=== PATIENT | male | born 1990 | race Caucasian/White ===

== ENCOUNTER 2020-01-21 03:03 | Emergency (ER) | payer OTHER, SELFPAY ==
--- NOTE | ~2020-01-21 | CT_ITS ---
EXAMINATION: CT brain wo con DATE: 01/21/2020 03:40 INDICATION: Head injury. TECHNIQUE: Computed tomography (CT) of the head was performed without intravenous contrast. The mA wa s adjusted according to patient size. Iterative reconstruction technique was employed. The dose-lengt h product was 605.33 mGy-cm. COMPARISON: Head CT 08/25/2017 FINDINGS: There is no intracranial hemorrhage, acute infarction, or abnormal intracranial mass lesion . The ventricles are normal in size. There is fluid in right maxillary sinus. There is mild mucosal t hickening in some of the other paranasal sinuses. There is a trace right mastoid effusion. The orbits are normal. Posterior scalp skin gab are noted. IMPRESSION: 1. Normal brain. Reviewed, dictated and finalized at location A. IMPRESSION: 1. Normal brain.
--- NOTE | ~2020-01-21 | CT_ITS ---
EXAMINATION: CT facial & cervical spine wo DATE: 01/21/2020 03:40 INDICATION: Facial and neck pain TECHNIQUE: Computed tomography (CT) of the maxillofacial region and cervical spine was performed with out intravenous contrast. The dose-length product (DLP) was 188.64 mGy-cm. Automated exposure control and iterative reconstruction technique were employed. COMPARISON: None FINDINGS: MAXILLOFACIAL CT: There is an acute, depressed and comminuted fracture involving the anterior wall of the right maxilla ry sinus. There is gas and swelling in the overlying soft tissues. There is partial opacification of the right maxillary sinus. No additional acute facial fracture is identified. A 12 mm polyp or mucous retention cyst is present in the left maxillary sinus. The globes are intact. CERVICAL SPINE CT: There is no fracture, dislocation, or subluxation. The vertebral body heights, alignment, and interve rtebral disc spaces are normal. The odontoid is intact. The prevertebral soft tissues are normal. IMPRESSION: 1. Acute depressed and comminuted fracture in the anterior wall the right maxillary sinus. 2. Normal cervical spine. Reviewed, dictated and finalized at location A. IMPRESSION: 1. Acute depressed and comminuted fracture in the anterior wall the right maxil debra sinus. 2. Normal cervical spine.
[2020-01-21 03:08] VITALS: BP 120/83; PULSE 112; RESP 20; TEMP 36.4; O2SAT 99
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
[2020-01-21] MEDS: MORPHINE SULFATE 4 MG/ML INJ 2 MG IV PUSH (03:23)
[2020-01-21] MEDS: ONDANSETRON INJ 4 MG/2 ML VIAL IV PUSH (03:23)
[2020-01-21] MEDS: SODIUM CHLORIDE 0.9% IV 1,000 ML 999 ML IV CONT (03:23)
[2020-01-21 03:35] LABS: Basophils Absolute Auto 0.1 K/mm3 (0.0-0.1); Basophils Percent Auto 0.7 % (0.2-1.2); Eosinophils Absolute Auto 0.5 K/mm3 (0-0.3); Eosinophils Percent Auto 4.2 % (0-4.4); Hematocrit 43.4 % (42.0-52.0); Hemoglobin 15.1 g/dL (14.0-18.0); Immature Granulocyte Absolute 0.04 K/mm3 (0.00-0.031); Immature Granulocyte Percent A 0.4 % (0-0.5); Lymphocytes Percent Auto 16.9 % (18.3-44.2); Mean Corpuscular HGB Conc 34.8 g/dl (32-36); Mean Corpuscular Hemoglobin 30.8 pg (26-34); Mean Corpuscular Volume 88.4 fl (80-100); Mean Platelet Volume 9.8 fl (7.4-10.4); Monocytes Absolute Auto 0.8 K/mm3 (0.1-0.6); Monocytes Percent Auto 7.1 % (2.6-8.5); Neutrophils Absolute Auto 7.5 K/mm3 (1.3-6.7); Neutrophils Percent Auto 70.7 % (45.5-73.1); Platelet Count Result 332 k/mm3 (150-375); Red Blood Count 4.91 M/mm3 (4.6-6.20); Red Cell Distribution Width 12.1 % (11.5-14.5); White Blood Count 10.7 K/mm3 (4.5-10.0)
[2020-01-21 03:40] LABS: Blood Urea Nitrogen 15 mg/dL (9-20); Calcium 9.9 mg/dL (8.4-10.2); Carbon Dioxide 19 mmol/L (22-30); Chloride 100 mmol/L (98-107); Estimated CRCL calculation 87 ml/min; Estimated Glomerular Filt Rate > 60; Glucose 195 mg/dL (75-110); Potassium 4.3 mmol/L (3.4-5.0); Sodium 136 mmol/L (137-145)
[2020-01-21 03:46] LABS: Add Urine Microscopic? YES; Appearance Urine Clear (Clear); Bacteria Urine Trace /hpf; Bilirubin Urine Negative (Negative); Blood Urine Negative (Negative); Color Urine Yellow (Yellow); Glucose Urine UA Negative (Negative); Ketones Urine Trace mg/dL (Negative); Leukocyte Esterase Ur Negative LEU/UL (Negative); Mucus Urine Heavy /lpf; Nitrate Urine Negative (Negative); Protein Urine 2+ mg/dL (Negative); RBC Urine 0-2 /hpf (0-2); Specific Grav Ur 1.023 (1.001-1.035); Squamous Epithelial Cell Urine Rare /hpf (Few); Urobilinogen Urine Negative mg/dL (<2.0)
[2020-01-21 03:47] LABS: Ethanol < 10 mg/dL (<10)
[2020-01-21 04:01] LABS: Partial Thromboplastin Time 24.9 SECONDS (22.3-36.8); Prothrombin Time 12.9 Seconds (11.1-14.7)
[2020-01-21] MEDS: TETANUS,DIPHTHERIA,AC PERTUSSIS ADULT (0.5 ML) BOOSTRIX (04:39)
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
[2020-01-21 06:41] VITALS: BP 112/71; PULSE 98; RESP 14; O2SAT 98
== END 2020-01-21 06:43 | disposition home or self-care (01) ==
PROVIDERS: Emergency Provider Emergency Medicine
DX: S02.40CA Maxillary fracture, right side, initial encounter for closed fracture (principal); S01.01XA Laceration without foreign body of scalp, initial encounter; S01.81XA Laceration without foreign body of other part of head, initial encounter; S01.511A Laceration without foreign body of lip, initial encounter; Z23 Encounter for immunization; X99.9XXA Assault by unspecified sharp object, initial encounter
CPT/HCPCS: 12002; 12011; 12013; 36415; 70450; 70486; 72125; 80048; 80307; 81001; 85025; 85610; 85730; 90471; 90715; 96361; 96374; 96375; 99284; A9270; J0131; J2270; J2405; J7030; L0140

== ENCOUNTER 2021-03-03 09:51 | Emergency (ER) | payer OTHER, SELFPAY ==
[2021-03-03 10:05] VITALS: BP 117/72; PULSE 70; RESP 16; TEMP 36.3; O2SAT 100
--- NOTE | 2021-03-03 10:40 | ED.GENADULT ---
HPI - General Adult General Chief complaint: Extremity Injury, Lower Stated complaint: left leg infection Time Seen by Provider: 03/03/21 09:59 Source: patient Mode of arrival: ambulatory Limitations: no limitations History of Present Illness HPI narrative: Patient presents for evaluation of painful swollen lesion to the anterior aspect the left lower leg for last 4 days. He cannot identify any precipitating cause or injury. No fever, chills, nausea, vomiting, drainage from the affected area. He is not diabetic. He does not provide me with a descriptive quality or numerical rating to the pain. He applied some hydrogen peroxide and KEN to affected area without much improvement in his symptoms thereafter. No additional complaints or concerns. He states last tetanus was two years ago. Related Data Allergies Allergy/AdvReac Type Severity Reaction Status Date / Time No Known Allergies Allergy Unknown Verified 03/03/21 10:36 Review of Systems Review of Systems: Narrative: CONSTITUTIONAL: Denies fever, chills, or sweats. EYES: Denies visual changes, redness, or discharge. ENT: Denies rhinorrhea, congestion, sore throat, or otalgia. CARDIOVASCULAR: Denies chest pain, palpitations, or edema. RESPIRATORY: Denies cough or dyspnea. GASTROINTESTINAL: Denies abdominal pain, nausea, vomiting, or diarrhea. GENITOURINARY: Denies dysuria or hematuria. SKIN: Reports painful, swollen, erythematous lesion to the anterior aspect of the left lower extremity MUSCULOSKELETAL: Denies back pain, joint pain, or myalgia. NEUROLOGIC: Denies headache, numbness, dizziness, or weakness. PSYCHIATRIC: Denies anxiety or depression. [facility] Past Medical History Medical History ADD (attention deficit disorder) Medical history unknown Surgical History Surgical History H/O inguinal hernia repair Family History Family History Mother No pertinent past medical history Social History Social History Smoking status: Smoker, status unknown Tobacco type: e-cigarettes/vaping Living arrangements: with family Gender identity (if verbalized by the patient): Male Spiritual care concerns: No Exam Narrative: Exam Narrative: GENERAL: Well-appearing, well-nourished, and in no acute distress. HEAD: Normocephalic, atraumatic. EYES: PERRLA and EOMI. ENT: Nares clear, no rhinorrhea or epistaxis. Mucous membranes moist. Oropharynx without tonsillar hypertrophy exudate or other lesions. Bilateral TMs pearly mendoza nonbulging NECK: Supple. No adenopathy or masses. No carotid bruits or JVD CHEST: Clear to auscultation. No respiratory distress. No wheezes rales or rhonchi HEART: Regular rate and rhythm. No murmur heard. Normal peripheral pulses. ABDOMEN: Soft, nontender, nondistended, normal active bowel sounds. EXTREMITIES: Tenderness to left lower leg lesion. Normal range of motion. SKIN: Approximately 7 x 6 cm area of erythema to the anterior aspect of the left lower leg. There is a 2 cm area of central fluctuance. Skin is otherwise warm, dry, no rash. NEURO: No focal deficits. Alert and oriented x3. PSYCH: Normal mood and affect. Course Course Emergency Course: This is a 30-year-old male that presented for evaluation and treatment of cutaneous abscess. Patient had I&D performed here and he tolerated well. Wound culture obtained. He has an allergy to PCN but can take derivitives such as amoxicillin. Will discharge with Bactrim and Keflex. Advise close follow-up and return for any worsening symptoms. Patient agreed with plan of care. Vital Signs Vital signs: Vital Signs Temperature 36.3 C L 03/03/21 10:05 Pulse Rate 70 03/03/21 10:05 Respiratory Rate 16 03/03/21 10:05 Blood Pressure 117/72 03/03/21 10:05
--- NOTE | 2021-03-03 11:14 | ED.GENADULT ---
HPI - General Adult General Chief complaint: Extremity Injury, Lower Stated complaint: left leg infection Time Seen by Provider: 03/03/21 09:59 Source: patient Mode of arrival: ambulatory Limitations: no limitations Related Data Allergies Allergy/AdvReac Type Severity Reaction Status Date / Time No Known Allergies Allergy Unknown Verified 03/03/21 10:36 Review of Systems Review of Systems: Narrative: CONSTITUTIONAL: Denies fever, chills, or sweats. EYES: Denies visual changes, redness, or discharge. ENT: Denies rhinorrhea, congestion, sore throat, or otalgia. CARDIOVASCULAR: Denies chest pain, palpitations, or edema. RESPIRATORY: Denies cough or dyspnea. GASTROINTESTINAL: Denies abdominal pain, nausea, vomiting, or diarrhea. GENITOURINARY: Denies dysuria or hematuria. SKIN: Reports redness to 3rd digit of right foot. Denies rash or itching. MUSCULOSKELETAL: Denies back pain, joint pain, or myalgia. NEUROLOGIC: Denies headache, numbness, dizziness, or weakness. PSYCHIATRIC: Denies anxiety or depression. [facility] Past Medical History Medical History ADD (attention deficit disorder) Medical history unknown Surgical History Surgical History H/O inguinal hernia repair Family History Family History Mother No pertinent past medical history Social History Social History Smoking status: Smoker, status unknown Tobacco type: e-cigarettes/vaping Living arrangements: with family Gender identity (if verbalized by the patient): Male Spiritual care concerns: No Course Vital Signs Vital signs: Vital Signs Temperature 36.3 C L 03/03/21 10:05 Pulse Rate 70 03/03/21 10:05 Respiratory Rate 16 03/03/21 10:05 Blood Pressure 117/72 03/03/21 10:05 Pulse Oximetry 100 03/03/21 10:05 Temperature 36.3 C L 03/03/21 10:05 Pulse Rate 70 03/03/21 10:05 Respiratory Rate 16 03/03/21 10:05 Blood Pressure 117/72 03/03/21 10:05 Pulse Oximetry 100 03/03/21 10:05 Medical Decision Making Vital Signs Vital Signs: Vital Signs Temperature 36.3 C L 03/03/21 10:05 Pulse Rate 70 03/03/21 10:05 Respiratory Rate 16 03/03/21 10:05 Blood Pressure 117/72 03/03/21 10:05 Pulse Oximetry 100 03/03/21 10:05 Temperature 36.3 C L 03/03/21 10:05 Pulse Rate 70 03/03/21 10:05 Respiratory Rate 16 03/03/21 10:05 Blood Pressure 117/72 03/03/21 10:05 Pulse Oximetry 100 03/03/21 10:05 Discharge Plan Discharge Clinical Impression: Cutaneous abscess of left lower limb Patient Disposition: Home, Self-Care Condition: Stable Instructions: Antibiotic Form, Abscess (ED), Incision and Drainage (ED) Patient Language: Polish Prescriptions: New cephalexin 500 mg capsule 500 mg PO Q6H Qty: 40 RF: 0 sulfamethoxazole-trimethoprim [Bactrim DS] 800-160 mg tablet 1 tablet PO Q12H Qty: 20 RF: 0 Follow-up/Referrals: Luis Tejeda MD [Physician] - UNKNOWN,DOCTOR [Primary Care Provider] - Time of Disposition: 11:04
== END 2021-03-03 11:09 | disposition home or self-care (01) ==
PROVIDERS: Emergency Provider Nurse Practitioner
DX: L02.416 Cutaneous abscess of left lower limb (principal); F17.200 Nicotine dependence, unspecified, uncomplicated
CPT/HCPCS: 10061; 87070; 87147; 87186; 87205; 99213; G0463

== ENCOUNTER 2021-11-20 15:36 | Emergency (ER) | payer OTHER, SELFPAY ==
--- NOTE | ~2021-11-20 | XR_ITS ---
XR femur LT min 2V DATE: 11/20/2021 16:15 INDICATION: Injury. Left groin pain radiating down left femur TECHNIQUE: AP and lateral views COMPARISON: November 20, 2021 left hip FINDINGS: 4 mm lucency subjacent to the cortex of the lateral aspect of the left femoral head; the ve rtebral diagnosis includes variation of trabecular pattern versus subtle nondisplaced cortical fractu re. Clinical correlation is advised. If further evaluation is appropriate, consider CT or MR hip exam ination. No other fracture or dislocation or any periosteal reaction or bone destruction of the left femur. No rmal alignment left hip and knee joint with relative preservation of joint spaces. IMPRESSION: Lucencies subjacent to the very lateral cortex of the left femoral head, which may be nor mal variation of trabecular pattern versus very subtle nondisplaced cortical fracture. Recommend clin ical correlation. If further imaging is desired, consider CT or MR left hip examination Reviewed, dictated and finalized at location B. ER INFLATED BALL IMPRESSION: Lucencies subjacent to the very lateral cortex of the left femoral head, which may be normal variation of trabecular pattern versus very subtle no ndisplaced cortical fracture. Recommend clinical correlation. If further imagin g is desired, consider CT or MR left hip examination
--- NOTE | ~2021-11-20 | XR_ITS ---
XR hip LT min 2V DATE: 11/20/2021 16:16 INDICATION: Injury. Left groin pain radiating down left leg TECHNIQUE: AP and lateral views COMPARISON: None FINDINGS: The pubic symphysis and sacroiliac joints are intact. There is an approximately 4 mm subcortical lucency at the lateral aspect of the femoral head on the A P projection, of uncertain significance. This might be anatomic variation of trabecular pattern, alth ough a subtle nondisplaced cortical fracture is not definitively excluded given the history of recent injury. Consider CT left hip or MR left hip for further evaluation as clinically appropriate. Otherwise no fracture or dislocation, avascular necrosis or bone destruction of the left hip is detec zuhair. Left hip joint space appears relatively well preserved. IMPRESSION: 4 mm lucency subjacent to the cortex at the very lateral aspect of the left femoral head; differential diagnosis includes anatomic variant of trabecular pattern versus small nondisplaced cor tical fracture. Clinical correlation is advised. Consider CT or MR hip evaluation as clinically appro priate Reviewed, dictated and finalized at location B. [employer] DIRECT[employer] IMPRESSION: 4 mm lucency subjacent to the cortex at the very lateral aspect of the left femoral head; differential diagnosis includes anatomic variant of trab ecular pattern versus small nondisplaced cortical fracture. Clinical correlatio n is advised. Consider CT or MR hip evaluation as clinically appropriate
--- NOTE | 2021-11-20 15:37 | ED.LOWEXIN ---
HPI - Extremity Injury (Lower) General Chief Complaint: Extremity Injury, Lower Stated Complaint: righy leg Time Seen by Provider: 11/20/21 16:05 Source: patient and RN notes reviewed Mode of arrival: ambulatory Limitations: no limitations History of Present Illness HPI Narrative: 31-year-old male presents with concern for hip pain. He reports several days ago he was playing around with some friends and jumped over a hand rail. Reports he fell injuring his left hip and his right thigh. He reports since then he has had bruising, pain with walking, pain with position changes. He reports pain with ambulation. He denies [id number] intervention. He reports history of hernia surgery with mesh bilaterally. Reports the right thigh pain radiates to the right groin MD complaint: hip injury Related Data Home Medications Medication Instructions Recorded Confirmed dextroamphetamine-amphetamine 30 mg PO DAILY 11/20/21 11/20/21 Allergies Allergy/AdvReac Type Severity Reaction Status Date / Time No Known Allergies Allergy Unknown Verified 11/20/21 15:48 Review of Systems Review of Systems: CONSTITUTIONAL: Denies malaise, chills, sweats, or fever. SKIN: Denies rash or itching, open skin, laceration, abrasion, redness, warmth, swelling. MUSCULOSKELETAL: Reports left hip pain and bruising, right thigh bruising NEUROLOGIC: Denies numbness, weakness All systems reviewed & are unremarkable except as noted in HPI and below PMFSH Past Medical History Medical History ADD (attention deficit disorder) Medical history unknown Surgical History Surgical History H/O inguinal hernia repair Family History Family History Mother No pertinent past medical history Social History Social History Smoking status: Smoker, status unknown Tobacco type: e-cigarettes/vaping Gender identity (if verbalized by the patient): Male Spiritual care concerns: No Comments At time of signature, agree with nursing past medical, surgical, social and family history. There is no relevant family history pertinent to the presenting complaint Exam Narrative: GENERAL: Well-appearing, well-nourished, and in no acute distress. HEAD: Normocephalic, atraumatic. EYES: PERRLA, conjunctivae clear NECK: Supple. CHEST: Speaks in full sentences. No respiratory distress. HEART: Regular rate and rhythm. Normal and equal peripheral pulses. EXTREMITIES: Bilateral hips have normal strength and sensation, normal range of motion. No edema. Left hip has large area of lateral ecchymosis, medial mid thigh right. Ecchymosis 5/5 strength with hip flexion and extension. Normal sensation with sensitivity to light touch and pain. Lateral left hip femoral head tenderness. No open wounds, no skin tenting, no devitalized tissue or atrophy, no trophic changes, no obvious deformity, alignment normal, nearby joints and structures intact. Distal pulses palpable and equal bilaterally, skin warm, dry, pink. Capillary refill less than 3 seconds. ABDOMEN: No abdominal tenderness, bilateral groins without palpable masses, hernias, no tenderness. No groin tenderness SKIN: Warm, dry, no rash. NEURO: Alert and oriented x3. PSYCH: Normal mood and affect Course Course Emergency Course: Discussed x-ray findings with patient. Discussed need for crutches until he can follow-up with orthopedics. Patient's exam correlates with x-ray. Patient is aware of diagnosis, understands and agrees to treatment plan. Anticipatory guidance given. Patient agrees to follow-up as directed and is aware of reasons to seek care at the emergency department. Portions of this record may have been created with voice recognition software Level of Care: [facility] Visit Vital
[2021-11-20 15:46] VITALS: BP 119/86; PULSE 96; RESP 16; TEMP 36.7; O2SAT 100
== END 2021-11-20 16:45 | disposition home or self-care (01) ==
PROVIDERS: Emergency Provider Nurse Practitioner
DX: S79.912A Unspecified injury of left hip, initial encounter (principal); W19.XXXA Unspecified fall, initial encounter; F98.8 Other specified behavioral and emotional disorders with onset usually occurring in childhood and adolescence
CPT/HCPCS: 73502; 73552; 99214; G0463

== ENCOUNTER 2021-12-25 10:05 | Emergency (ER) | payer OTHER, SELFPAY ==
[2021-12-25 10:15] VITALS: BP 122/64; PULSE 66; RESP 18; TEMP 36.9; O2SAT 100
--- NOTE | 2021-12-25 10:20 | ED.DENTAL ---
HPI - Dental/Oral General Chief complaint: Dental/Oral Stated complaint: Tooth Pain Time Seen by Provider: 12/25/21 10:20 Source: patient Mode of arrival: ambulatory Limitations: no limitations History of Present Illness HPI Narrative: Bony Tsai is a 31 yo male with no PMH who [facility] molar pain with that started 4 days ago-patient requested Vicodin for pain Related Data Home Medications Medication Instructions Recorded Confirmed dextroamphetamine-amphetamine 30 mg PO DAILY 11/20/21 11/20/21 Allergies Allergy/AdvReac Type Severity Reaction Status Date / Time Penicillins Allergy Swelling Verified 12/25/21 10:39 Review of Systems Review of Systems: CONSTITUTIONAL: Denies fever, chills, sweats. EYES: Denies visual changes, redness, discharge. ENT: Denies rhinorrhea, congestion, sore throat, otalgia. CARDIOVASCULAR: Denies chest pain, palpitations, edema. RESPIRATORY: Denies dyspnea, wheezing, cough GASTROINTESTINAL: Denies abdominal pain, nausea, vomiting, diarrhea. GENITOURINARY: Denies dysuria, hematuria, abnormal discharge SKIN: Denies rash or itching. NEUROLOGIC: Denies numbness, or focal weakness. PSYCHIATRIC: Denies anxiety or depression. Right lower molar dental pain PMFSH Past Medical History Medical History (Updated 12/25/21 @ 11:36 by Gogo Miranda CNP) ADD (attention deficit disorder) Surgical History Surgical History H/O inguinal hernia repair Family History Family History Mother No pertinent past medical history Social History Social History (Updated 12/25/21 @ 10:40 by Gogo Miranda CNP) Smoking status: Smoker, status unknown Tobacco type: e-cigarettes/vaping Alcohol intake: current Alcohol use details: Drinks more than socially Gender identity (if verbalized by the patient): Male Spiritual care concerns: No Comments At time of signature, I agree with nursing past medical, surgical, social and family history. There is no relevant family history pertinent to the presenting complaint. Exam Narrative: GENERAL: This is a well-nourished, well-developed patient, in moderate distress. HEAD: normocephalic, atraumatic. EYES: Sclera clear/white. Vision is grossly intact. EARS: External ears normal. Hearing grossly intact. NOSE: External nose normal without nasal discharge, nares without redness, no rhinorrhea. Mouth-poor dentition he has a partial dental patch on the right second molar, tooth #18; states he can feel his pulse in his tooth THROAT: Mucous membranes moist, NECK: Neck supple, non-tender CARDIOVASCULAR: Regular rate and rhythm without murmurs, gallops, or rubs. RESPIRATORY: Clear to auscultation. Breath sounds equal bilaterally. No wheezes, rales, or rhonchi. GASTROINTESTINAL: Abdomen soft, SKIN: warm, intact with no suspicious lesions or rash, good texture and turgor. NEURO: awake, alert, and oriented to person, place and time. There were no obvious focal neurologic abnormalities. Steady gait EXTREMITIES: Normal range of motion. BACK: Nontender without deformity Course Course Emergency Course: Patient comes with dental pain x4 days lower right molar with a dental patch in place Started on amoxicillin 500 mg 1 3 times daily x10 days and Tylenol 3, ibuprofen 800 mg 3 times daily as needed patient given dental list; patient confirmed that he can take amoxicillin even though he states he is allergic to penicillin- states only swelling of jaw not airway, Level of Care: Express Care Visit Vital Signs Vital signs: Vital Signs Temperature 98.4 F 12/25/21 10:15 Pulse Rate 66 12/25/21 10:15 Respiratory Rate 18 12/25/21 10:15 Blood Pressure 122/64 12/25/21 10:15 Pulse Oximetry 100 12/25/21 10:15 Temperature 98.4 F 12/25/21 10:15 Pulse Rate 66 12/25/21 10:15 Respiratory Rate 18
== END 2021-12-25 10:41 | disposition home or self-care (01) ==
PROVIDERS: Emergency Provider Nurse Practitioner
DX: S02.5XXA Fracture of tooth (traumatic), initial encounter for closed fracture (principal); F98.8 Other specified behavioral and emotional disorders with onset usually occurring in childhood and adolescence; X58.XXXA Exposure to other specified factors, initial encounter
CPT/HCPCS: 99213; G0463

== ENCOUNTER 2022-06-08 19:09 | Emergency (ER) | payer OTHER, SELFPAY ==
--- NOTE | 2022-06-08 19:11 | ED.SKABFB ---
HPI - Skin/Abscess/Foreign Bdy General Chief complaint: Skin/Abscess/Foreign Body Stated complaint: boil under armpit Time Seen by Provider: 06/08/22 19:19 Source: patient and RN notes reviewed Mode of arrival: ambulatory Limitations: dementia History of Present Illness HPI narrative: 32-year-old male presents with concern for a boil in his right axillary area. He reports the area has been there for about 3 days and is tender. He denies drainage. Reports he was rolling up his sleeves at work and feels that the shirt rubbed on his skin causing the boil. He denies fever, bodies, chills, sweats. Reports history of having to have a boil lanced another area of his body. MD complaint: other (Redness) Related Data Allergies Allergy/AdvReac Type Severity Reaction Status Date / Time Penicillins Allergy Swelling Verified 06/08/22 19:11 Review of Systems Review of Systems: CONSTITUTIONAL: Denies malaise, chills, sweats, or fever. EYES: Denies redness, or discharge. ENT: Denies rhinorrhea, congestion, swollen lips, swollen tongue CARDIOVASCULAR: Denies chest pain, palpitations, or edema. RESPIRATORY: Denies cough or dyspnea. GASTROINTESTINAL: Denies abdominal pain, nausea, vomiting SKIN: Reports red boil on his right axillary area. Denies purulent drainage, numbness, pain beyond proportion MUSCULOSKELETAL: Denies joint pain or myalgia. NEUROLOGIC: Denies headache. All systems reviewed & are unremarkable except as noted in HPI and below PMFSH Past Medical History Medical History (Updated 06/08/22 @ 19:24 by Afsaneh Cid NP) ADD (attention deficit disorder) Surgical History Surgical History H/O inguinal hernia repair Family History Family History Mother No pertinent past medical history Social History Social History (Updated 12/25/21 @ 10:40 by Gogo Miranda CNP) Smoking status: Smoker, status unknown Tobacco type: e-cigarettes/vaping Alcohol intake: current Alcohol use details: Drinks more than socially Gender identity (if verbalized by the patient): Male Spiritual care concerns: No Comments At time of signature, agree with nursing past medical, surgical, social and family history. There is no relevant family history pertinent to the presenting complaint Exam Narrative: GENERAL: Well-appearing, well-nourished, and in no acute distress. HEAD: Normocephalic, atraumatic. EYES: PERRLA, conjunctivae clear ENT: Mucous membranes moist. NECK: Supple. No lymphadenopathy CHEST: Clear to auscultation. No respiratory distress. HEART: Regular rate and rhythm. SKIN: Warm, dry. Approximate 3 cm raised fluctuant erythematous, tender, warm nodule with sharp margins noted in the right axilla without surrounding erythema, tenderness does not extend beyond margins of the boil. No vesicles, bullae, necrosis, ecchymosis, crepitus noted. NEURO: Alert and oriented x3. PSYCH: Normal mood and affect Course Course Emergency Course: Patient is aware of diagnosis, understands and agrees to treatment plan. Anticipatory guidance given. Patient agrees to follow-up as directed and is aware of reasons to seek care at the emergency department. Portions of this record may have been created with voice recognition software Level of Care: Express Care Visit Vital Signs Vital signs: Reviewed. Procedures Abscess I/D upper extremity: Date of Incision: 06/08/22 Time of Incision: 19:23 Side (if applicable): right Local Anesthetic: lidocaine 1% Amount of anesthesia used (mL): 3 Technique: incised with #11 blade Amount of fluid expressed (mL): 5 Irrigation: Yes Packing used?: none I&D Results: Pus MDM - Skin/Abscess/Foreign Bdy MDM Narrative Medical decision making narrative: Verbal consent was obtained. The indication for the procedure was clinical
[2022-06-08 19:16] VITALS: BP 138/73; PULSE 86; RESP 16; TEMP 37; O2SAT 99
== END 2022-06-08 19:50 | disposition home or self-care (01) ==
PROVIDERS: Emergency Provider Nurse Practitioner
DX: L02.411 Cutaneous abscess of right axilla (principal); F17.290 Nicotine dependence, other tobacco product, uncomplicated
CPT/HCPCS: 10060; 87070; 87147; 87181; 87186; 87205; 99213; G0463

== ENCOUNTER 2022-08-18 19:06 | Emergency (ER) | payer OTHER, SELFPAY ==
[2022-08-18 19:21] VITALS: BP 139/92; PULSE 114; RESP 18; TEMP 36.6; O2SAT 100
--- NOTE | 2022-08-18 19:54 | ED.URI ---
HPI - URI/Sore Throat General Chief Complaint: Upper Respiratory Infection Stated Complaint: SORE THROAT Time Seen by Provider: 08/18/22 19:31 Source: patient Mode of arrival: ambulatory Limitations: no limitations History of Present Illness HPI Narrative: The patient presents today complaining of a 2 day history of throat irritation. Denies fever, congestion, cough, rhinorrhea. He has tried no medication for symptoms prior to arrival. Currently rates his pain 5/10. Patient is also concerned that he has had intermittent bloody stool x months . he has had this evaluated by his previous PCP several months ago who recommended that he get a colonoscopy. He has not had this set up and now his PCP is no longer in the area and he does not want to go to the doctor that replaced her. He does not have pain when he has a bowel movement. States the blood occurs typically once weekly. He has no abdominal pain, nausea or vomiting to go along with this. Related Data Home Medications Medication Instructions Recorded Confirmed No Home Medications 08/18/22 08/18/22 Allergies Allergy/AdvReac Type Severity Reaction Status Date / Time Penicillins Allergy Swelling Verified 08/18/22 19:14 Review of Systems Review of Systems: CONSTITUTIONAL: Denies body aches, fever, chills, or sweats. EYES: Denies visual changes, redness, or discharge. ENT: Denies rhinorrhea, congestion, sore throat, or otalgia.+ Throat irritation CARDIOVASCULAR: Denies chest pain, palpitations, or edema. RESPIRATORY: Denies cough or dyspnea. GASTROINTESTINAL: Denies abdominal pain, nausea, vomiting, or diarrhea.+ bloody stool GENITOURINARY: Denies dysuria or hematuria. SKIN: Denies rash, itching, or wounds. MUSCULOSKELETAL: Denies back pain, joint pain, or myalgia. NEUROLOGIC: Denies headache, numbness, tingling, or weakness. PSYCH: Denies depression or anxiety. [facility] Past Medical History Medical History ADD (attention deficit disorder) Surgical History Surgical History H/O inguinal hernia repair Family History Family History Mother No pertinent past medical history Social History Social History Smoking status: Smoker, status unknown Tobacco type: e-cigarettes/vaping Alcohol intake: current Alcohol use details: Drinks more than socially Gender identity (if verbalized by the patient): Male Spiritual care concerns: No Comments At time of signature, I have reviewed and agree with nursing past medical, surgical, social and family history unless otherwise noted. Please see nursing chart for further information. There is no relevant family history pertinent to the presenting complaint Exam Narrative: GENERAL: Well-appearing, well-nourished, and in no acute distress. HEAD: Normocephalic, atraumatic. EYES: EOMI. No redness or drainage. Conjunctivae normal. ENT: Mucous membranes pink and moist. Nares clear. No rhinorrhea. TMs normal bilaterally. Throat normal with right-sided tonsil stone. Uvula midline. NECK: Normal AROM. Supple. No lymphadenopathy. CHEST: No respiratory distress. Clear to auscultation. HEART: Regular rate and rhythm. No murmur appreciated. Normal peripheral pulses. ABDOMEN: Soft, nontender, nondistended, normal active bowel sounds. patient has declined rectal exam. MUSCULOSKELETAL: No bony tenderness. EXTREMITIES: Normal range of motion. No edema. SKIN: Warm, dry, no rash. Capillary refill normal. Normal skin turgor. NEURO: No focal deficits. Alert and oriented x3. Gait steady. PSYCH: Normal affect. No signs of depression or anxiety. Course Course Level of Care: Express Care Visit Vital Signs Vital signs: Vital Signs Temperature 97.9 F 08/18/22 19:21 Puls
== END 2022-08-18 20:05 | disposition home or self-care (01) ==
PROVIDERS: Emergency Provider Nurse Practitioner
DX: J35.8 Other chronic diseases of tonsils and adenoids (principal); F17.290 Nicotine dependence, other tobacco product, uncomplicated
CPT/HCPCS: 87081; 87880; 99213; G0463

== ENCOUNTER 2023-02-27 14:09 | Emergency (ER) | payer OTHER, SELFPAY ==
[2023-02-27 14:30] VITALS: BP 123/78; PULSE 60; RESP 14; TEMP 36.3; O2SAT 100
--- NOTE | 2023-02-27 14:52 | ED.DENTAL ---
HPI - Dental/Oral General Chief complaint: Dental/Oral Stated complaint: Dental Pain Time Seen by Provider: 02/27/23 14:54 Source: patient Mode of arrival: ambulatory History of Present Illness HPI Narrative: 32-year-old male presented for complaint of right sided dental pain, he is unsure if the pain is to the top with the bottom. States started yesterday. He took leftover pain medicine with codeine without relief. He denies associated difficulty swallowing, neck pain, nausea, vomiting, fevers or chills. Endorses history of broken teeth and caries. Unsure if he has a dentist MD Complaint: tooth pain Related Data Allergies Allergy/AdvReac Type Severity Reaction Status Date / Time Penicillins Allergy Swelling Verified 02/27/23 14:16 Review of Systems Review of Systems: CONSTITUTIONAL: Denies body aches, fever, chills ENT: Denies rhinorrhea, congestion, sore throat, or otalgia. Reports dental pain CARDIOVASCULAR: Denies chest pain, palpitations RESPIRATORY: Denies cough or dyspnea. SKIN: Denies rash, itching, or wounds. MUSCULOSKELETAL: Denies myalgia. NEUROLOGIC: Denies headache, numbness, tingling, or weakness. [facility] Past Medical History Medical History ADD (attention deficit disorder) Surgical History Surgical History H/O inguinal hernia repair Family History Family History Mother No pertinent past medical history Social History Social History Smoking status: Smoker, status unknown Tobacco type: e-cigarettes/vaping Alcohol intake: current Alcohol use details: Drinks more than socially Living arrangements: with family Gender identity (if verbalized by the patient): Male Spiritual care concerns: No Comments At time of signature, I have reviewed and agree with nursing past medical, surgical, social and family history unless otherwise noted. Please see nursing chart for further information. There is no relevant family history pertinent to the presenting complaint Exam Narrative: GENERAL: Appears in pain; no acute distress. HEAD: Normocephalic, atraumatic. EYES: EOMI. No redness or drainage. Conjunctivae normal. ENT: Dental pain location of #1-4 and #28-32, no apparent gum swelling or redness, filling noted to #30. Mucous membranes pink and moist. TMs normal bilaterally. Throat normal. Uvula midline. NECK: Normal AROM. No lymphadenopathy or induration CHEST: No respiratory distress. Clear to auscultation. HEART: Regular rate and rhythm. No murmur appreciated. SKIN: Warm, dry, no rash. Normal skin turgor. PSYCH: flat, agitated Course Course Emergency Course: Patient is aware of diagnosis, understands and agrees to treatment plan. Anticipatory guidance given. Patient agrees to follow-up as directed and is aware of reasons to seek care at the emergency department. Portions of this record may have been created with voice recognition software Level of Care: Express Care Visit Vital Signs Vital signs: Vital Signs Temperature 97.3 F L 02/27/23 14:30 Pulse Rate 60 02/27/23 14:30 Respiratory Rate 14 02/27/23 14:30 Blood Pressure 123/78 02/27/23 14:30 Pulse Oximetry 100 02/27/23 14:30 Oxygen Delivery Room Air 02/27/23 14:30 Temperature 97.3 F L 02/27/23 14:30 Pulse Rate 60 02/27/23 14:30 Respiratory Rate 14 02/27/23 14:30 Blood Pressure 123/78 02/27/23 14:30 Pulse Oximetry 100 02/27/23 14:30 Oxygen Delivery Room Air 02/27/23 14:30 MDM - Dental/Oral MDM Narrative Medical decision making narrative: Patients pain and complaint coupled with physical findings are consistent with dentalgia, since patient is unable to verbalize if the pain is upper or lower, suspect toothache over abscess. Will send abx d
== END 2023-02-27 15:08 | disposition home or self-care (01) ==
PROVIDERS: Emergency Provider Nurse Practitioner Family
DX: K08.89 Other specified disorders of teeth and supporting structures (principal); F17.290 Nicotine dependence, other tobacco product, uncomplicated
CPT/HCPCS: 99213; G0463

== ENCOUNTER 2023-07-19 13:06 | Emergency (ER) | payer OTHER, SELFPAY ==
--- NOTE | 2023-07-19 13:10 | ED.NAVMDI ---
HPI - Nausea/Vomiting/Diarrhea General Chief complaint: Nausea/Vomiting/Diarrhea Stated complaint: throwing up,headache work note Time Seen by Provider: 07/19/23 13:18 Source: patient and RN notes reviewed Mode of arrival: ambulatory Limitations: no limitations History of Present Illness HPI Narrative: 33-year-old male presents with concern for an episode of vomiting today and 1 episode of headache. He denies current symptoms. He denies rhinorrhea, nasal congestion, sore throat. He denies abdominal pain, fever, aches, chills, sweats. He denies known sick contacts. Reports his symptoms have resolved and he needs a note for leaving work. MD elicited complaint: nausea and vomiting Related Data Home Medications Medication Instructions Recorded Confirmed No Home Medications 07/19/23 07/19/23 Allergies Allergy/AdvReac Type Severity Reaction Status Date / Time Penicillins Allergy Swelling Verified 07/19/23 13:16 Review of Systems Review of Systems: CONSTITUTIONAL: Denies malaise, chills, sweats, or fever. ENT: Denies rhinorrhea, congestion, sinus pain, otalgia or sore throat. CARDIOVASCULAR: Denies chest pain, palpitations, or edema. RESPIRATORY: Denies cough or dyspnea. GASTROINTESTINAL: Denies abdominal pain, nausea, vomiting, diarrhea, bloody, or mucous stools. GENITOURINARY: Denies dysuria or hematuria. MUSCULOSKELETAL: Denies myalgia. NEUROLOGIC: Denies headache. All systems reviewed & are unremarkable except as noted in HPI and below PMFSH Past Medical History Medical History ADD (attention deficit disorder) Surgical History Surgical History H/O inguinal hernia repair Family History Family History Mother No pertinent past medical history Social History Social History Smoking status: Smoker, status unknown Tobacco type: e-cigarettes/vaping Alcohol intake: current Alcohol use details: Drinks more than socially Living arrangements: with family Gender identity (if verbalized by the patient): Male Spiritual care concerns: No Comments At time of signature, agree with nursing past medical, surgical, social and family history. There is no relevant family history pertinent to the presenting complaint Exam Narrative: GENERAL: Well-appearing, well-nourished, and in no acute distress. HEAD: Normocephalic, atraumatic. EYES: PERRLA, conjunctivae clear, and EOMI. ENT: Nares clear, turbinates pink, no rhinorrhea or epistaxis. Mucous membranes moist. Oropharynx without edema, erythema, or lesions. Tonsils not enlarged and without exudate. NECK: Supple. No lymphadenopathy CHEST: Speaks in full sentences. No respiratory distress. HEART: Regular rate and rhythm. ABDOMEN: Soft, flat, nondistended, nontender. No guarding, rebound tenderness, or rigidity. No pulsatile masses. Bowel sounds present in all four quadrants. SKIN: Warm, dry, no rash. NEURO: Alert and oriented x3. PSYCH: Normal mood and affect Course Course Emergency Course: Patient is aware of diagnosis, understands and agrees to treatment plan. Anticipatory guidance given. Patient agrees to follow-up as directed and is aware of reasons to seek care at the emergency department. Portions of this record may have been created with voice recognition software Level of Care: Express Care Visit Vital Signs Vital signs: Reviewed. MDM - Nausea/Vomiting/Diarrhea MDM Narrative Medical decision making narrative: No evidence of pancreatitis, AAA, cholecystitis, choledocholithiasis, cholangitis, mesenteric ischemia, small bowel obstruction, diverticulitis, colitis, appendicitis, or pelvic etiology such as. Patient has no history of peptic ulcer, H. pylori, chronic aspirin NSAID or corticosteroid use, chronic alc
[2023-07-19 13:15] VITALS: BP 128/72; PULSE 71; RESP 16; TEMP 36.9; O2SAT 99
[2023-07-19 13:17] VITALS: BP 128/72; PULSE 71; RESP 16; TEMP 36.9; O2SAT 99
== END 2023-07-19 13:28 | disposition home or self-care (01) ==
PROVIDERS: Emergency Provider Nurse Practitioner
DX: R11.10 Vomiting, unspecified (principal); F17.290 Nicotine dependence, other tobacco product, uncomplicated
CPT/HCPCS: 99211; G0463

== ENCOUNTER 2023-10-05 18:32 | Emergency (ER) | payer OTHER, SELFPAY ==
--- NOTE | 2023-10-05 18:36 | ED.DENTAL ---
HPI - Dental/Oral General Chief complaint: Dental/Oral Stated complaint: right side tooth pain Time Seen by Provider: 10/05/23 18:35 Source: patient Mode of arrival: ambulatory Limitations: no limitations History of Present Illness HPI Narrative: Bony is a 33-year-old male patient presenting to clinic today with complaints of pain and swelling in the right lower jaw. He reports he has had dental pain for the past few days. Has had infections with this tooth before. Related Data Allergies Allergy/AdvReac Type Severity Reaction Status Date / Time Penicillins Allergy Swelling Verified 10/05/23 18:39 Review of Systems Review of Systems: Pertinent positives per HPI. Patient denies any fever, chills, rash, headache, visual changes, dizziness, cough, shortness of breath, chest pain, palpitations, nausea, vomiting, diarrhea, constipation, abdominal pain, or any urinary issues. PMFSH Past Medical History Medical History ADD (attention deficit disorder) Surgical History Surgical History H/O inguinal hernia repair Family History Family History Mother No pertinent past medical history Social History Social History Smoking status: Smoker, status unknown Tobacco type: e-cigarettes/vaping Alcohol intake: current Alcohol use details: Drinks more than socially Living arrangements: with family Gender identity (if verbalized by the patient): Male Spiritual care concerns: No Comments At the time of my signature, I reviewed and agree with the nursing past medical, surgical, social, and family history. There is no relevant family history pertinent to the patient complaint. Exam Narrative: General: Well-developed, well nourished, in no apparent distress Head: Normocephalic, atraumatic Eyes: Pupils equally round and reactive to light bilaterally, EOM intact, sclera and conjunctive clear, no discharge, lids normal Ears: TMs intact and clear, ear canals clear, no drainage, grossly hearing normal. Nose: Nares patent, no discharge, no inflammation, no sinus tenderness. Mouth: Oral pharynx without lesions or masses, poor dentition, MMM. Dental pain to the number 30 with swelling and redness Neck: Supple, trachea midline, no enlargement of anterior or posterior cervical nodes, no thyroid masses or goiter palpable. Cardio: Regular rate and rhythm, s1 and s2 normal, no murmur appreciated. Resp: Clear to auscultation bilaterally, no rhonchi, rales, wheezing or rubs Course Course Emergency Course: Portions of this record may have been created with voice recognition software. Level of Care: Express Care Visit Vital Signs Vital signs: Vital Signs Temperature 37.2 C 10/05/23 18:41 Pulse Rate 69 10/05/23 18:41 Respiratory Rate 16 10/05/23 18:41 Blood Pressure 123/66 10/05/23 18:41 Pulse Oximetry 100 10/05/23 18:41 Oxygen Delivery Room Air 10/05/23 18:41 Temperature 37.2 C 10/05/23 18:41 Pulse Rate 69 10/05/23 18:41 Respiratory Rate 16 10/05/23 18:41 Blood Pressure 123/66 10/05/23 18:41 Pulse Oximetry 100 10/05/23 18:41 Oxygen Delivery Room Air 10/05/23 18:41 Vital signs reviewed MDM - Dental/Oral MDM Narrative Medical decision making narrative: At the time of visit patient is resting comfortably on the exam table. Patient appears to be nontoxic. I suspect patient has a dental infection. Prescription for clindamycin and ibuprofen was sent to the pharmacy. Supportive measures were discussed with the patient and they voiced understanding discharge instructions and agrees to treatment plan. Return precautions reviewed Differential Diagnosis Differential diagnosis: Likely gingival abscess, dental caries, toothache, dental abscess
[2023-10-05 18:41] VITALS: BP 123/66; PULSE 69; RESP 16; TEMP 37.2; O2SAT 100
== END 2023-10-05 19:05 | disposition home or self-care (01) ==
PROVIDERS: Emergency Provider Nurse Practitioner Family
DX: K08.89 Other specified disorders of teeth and supporting structures (principal); F17.290 Nicotine dependence, other tobacco product, uncomplicated
CPT/HCPCS: 99213; G0463

== ENCOUNTER 2023-12-10 09:29 | Emergency (ER) | payer OTHER, SELFPAY ==
--- NOTE | ~2023-12-10 | XR_ITS ---
XR knee LT 3V 12/10/2023 10:27 Indication: Left knee pain after twisting injury Procedure: 3 views left knee Comparison: No prior studies for comparison. Findings: No fracture, subluxation or dislocation. No joint effusion. No foreign bodies. Impression: 1: No acute bone or joint abnormality. Reviewed, dictated and finalized at location A. [employer] Impression: 1: No acute bone or joint abnormality.
[2023-12-10 09:38] VITALS: BP 107/67; PULSE 68; RESP 16; TEMP 36.9; O2SAT 99
--- NOTE | 2023-12-10 10:10 | ED.LOWEXIN ---
HPI - Extremity Injury (Lower) General Chief Complaint: Extremity Injury, Lower Stated Complaint: Left Knee Pain Time Seen by Provider: 12/10/23 10:10 Source: patient Mode of arrival: ambulatory Limitations: no limitations History of Present Illness HPI Narrative: 33-year-old male presents with complaint of pain to left knee. 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 Pain when ambulatory. Small abrasion noted to left knee. Pain worse with extension. No deformity noted. Distal neurovascularly intact. All systems reviewed and negative except as noted above. Related Data Allergies Allergy/AdvReac Type Severity Reaction Status Date / Time Penicillins Allergy Severe Swelling Verified 12/10/23 10:07 Review of Systems Review of Systems: CONSTITUTIONAL: Denies fever, chills, or sweats. EYES: Denies visual changes, redness, or discharge. ENT: Denies rhinorrhea, congestion, sore throat, or otalgia. CARDIOVASCULAR: Denies chest pain, palpitations, or edema. RESPIRATORY: Denies cough or dyspnea. GASTROINTESTINAL: Denies abdominal pain, nausea, vomiting, or diarrhea. GENITOURINARY: Denies dysuria or hematuria. SKIN: Denies rash or itching. MUSCULOSKELETAL: Denies back pain or myalgia. Reports left knee pain. NEUROLOGIC: Denies headache, numbness, or weakness. PSYCHIATRIC: Denies anxiety or depression. All other systems reviewed are negative, except as documented in HPI. [facility] Past Medical History Medical History ADD (attention deficit disorder) Surgical History Surgical History H/O inguinal hernia repair Family History Family History Mother No pertinent past medical history Social History Social History Smoking status: Smoker, status unknown Tobacco type: e-cigarettes/vaping Alcohol intake: current Alcohol use details: Drinks more than socially Living arrangements: with family Gender identity (if verbalized by the patient): Male Spiritual care concerns: No Comments At time of signature, agree with nursing past medical, surgical, social and family history. There is no relevant family history pertinent to the presenting complaint. Exam Narrative: GENERAL: This is a well-nourished, well-developed patient, in no apparent distress. HEAD: normocephalic, atraumatic. EYES: PERRL. Sclera clear/white. Vision is grossly intact. EARS: External ears normal NOSE: External nose normal NECK: Neck supple, non-tender without lymphadenopathy, masses or thyromegaly. CARDIOVASCULAR: Regular rate and rhythm without murmurs, gallops, or rubs. RESPIRATORY: Clear to auscultation. Breath sounds equal bilaterally. No wheezes, rales, or rhonchi. SKIN: warm, Dry, intact with no suspicious lesions or rash, good texture and turgor. NEURO: awake, alert, and oriented to person, place and time. There were no obvious focal neurologic abnormalities. EXTREMITIES: No tenderness on palpation knee. No swelling noted. No deformity noted. Range of motion intact. Small 1 cm diameter abrasion noted to medial aspect of left knee without any signs of infection. Course Course Level of Care: Express Care Visit Vital Signs Vital signs: Vital Signs Temperature 36.9 C 12/10/23 09:38 Pulse Rate 68 12/10/23 09:38 Respiratory Rate 16 12/10/23 09:38 Blood Pressure 107/67 12/10/23 09:38 Pulse Oximetry 99 12/10/23 09:38 Temperature 36.9 C 12/10/23 09:38 Pulse Rate 68 12/10/23 09:38 Respiratory Rate 16 12/10/23 09:38 Blood Pressure 107/67 12/10/23 09:38 Pulse Oximetry 99 12/10/23 09:38 Reviewed MDM - Extremity Injury (Lower) MDM Narrative Medical decision making narrative: small abrasion noted to left
== END 2023-12-10 10:50 | disposition home or self-care (01) ==
PROVIDERS: Emergency Provider Nurse Practitioner Family
DX: S83.92XA Sprain of unspecified site of left knee, initial encounter (principal); X50.9XXA Other and unspecified overexertion or strenuous movements or postures, initial encounter; Y93.83 Activity, rough housing and horseplay; F17.290 Nicotine dependence, other tobacco product, uncomplicated
CPT/HCPCS: 73562; 99213; G0463

== ENCOUNTER 2024-03-05 13:59 | Emergency (ER) | payer OTHER, SELFPAY ==
[2024-03-05 14:12] VITALS: BP 124/73; PULSE 54; RESP 16; TEMP 36.8; O2SAT 100
--- NOTE | 2024-03-05 14:44 | ED.DENTAL ---
HPI - Dental/Oral General Chief complaint: Dental/Oral Stated complaint: right side tooth pain Time Seen by Provider: 03/05/24 14:38 Source: patient and RN notes reviewed Mode of arrival: ambulatory Limitations: no limitations History of Present Illness HPI Narrative: Patient presents today complaining of right lower tooth pain x2 days. Denies any additional symptoms. He has been taking ibuprofen without relief. He also took some leftover antibiotics, which did not provide any relief. He does not currently have a dentist. Related Data Allergies Allergy/AdvReac Type Severity Reaction Status Date / Time Penicillins Allergy Severe Swelling Verified 12/10/23 10:07 Review of Systems Review of Systems: CONSTITUTIONAL: Denies body aches, fever, chills, or sweats. EYES: Denies visual changes, redness, or discharge. ENT: Denies rhinorrhea, congestion, sore throat, or otalgia.+ tooth pain CARDIOVASCULAR: Denies chest pain, palpitations, or edema. RESPIRATORY: Denies cough or dyspnea. GASTROINTESTINAL: Denies abdominal pain, nausea, vomiting, or diarrhea. GENITOURINARY: Denies dysuria or hematuria. SKIN: Denies rash, itching, or wounds. MUSCULOSKELETAL: Denies back pain, joint pain, or myalgia. NEUROLOGIC: Denies headache, numbness, tingling, or weakness. PSYCH: Denies depression or anxiety. FOR[facility], [facility] Past Medical History Medical History ADD (attention deficit disorder) Surgical History Surgical History H/O inguinal hernia repair Family History Family History Mother No pertinent past medical history Social History Social History Smoking status: Smoker, status unknown Tobacco type: e-cigarettes/vaping Alcohol intake: current Alcohol use details: Drinks more than socially Living arrangements: with family Gender identity (if verbalized by the patient): Male Spiritual care concerns: No Comments At time of signature, I have reviewed and agree with nursing past medical, surgical, social and family history unless otherwise noted. Please see nursing chart for further information. There is no relevant family history pertinent to the presenting complaint Exam Narrative: GENERAL: Well-appearing, well-nourished, and in no acute distress. HEAD: Normocephalic, atraumatic. EYES: EOMI. No redness or drainage. Conjunctivae normal. ENT: Mucous membranes pink and moist. Tooth number 30 has large cavity in the center with temporary filling material. No obvious surrounding erythema or edema of the gumline. No obvious periapical abscess. No facial swelling noted. NECK: Normal AROM. CHEST: No respiratory distress. EXTREMITIES: Normal range of motion. No edema. SKIN: Warm, dry, no rash. Capillary refill normal. Normal skin turgor. NEURO: No focal deficits. Alert and oriented x3. Gait steady. PSYCH: Normal affect. No signs of depression or anxiety. Course Course Level of Care: Express Care Visit Vital Signs Vital signs: Vital Signs Temperature 98.3 F 03/05/24 14:12 Pulse Rate 54 L 03/05/24 14:12 Respiratory Rate 16 03/05/24 14:12 Blood Pressure 124/73 03/05/24 14:12 Pulse Oximetry 100 03/05/24 14:12 Oxygen Delivery Room Air 03/05/24 14:12 Temperature 98.3 F 03/05/24 14:12 Pulse Rate 54 L 03/05/24 14:12 Respiratory Rate 16 03/05/24 14:12 Blood Pressure 124/73 03/05/24 14:12 Pulse Oximetry 100 03/05/24 14:12 Oxygen Delivery Room Air 03/05/24 14:12 Reviewed MDM - Dental/Oral MDM Narrative Medical decision making narrative: Patient will be treated with a course of clindamycin. He would also like a prescription medication for pain. Prescription diclofenac will also be sent. He has been urged to make an appointment w
== END 2024-03-05 14:54 | disposition home or self-care (01) ==
PROVIDERS: Emergency Provider Nurse Practitioner
DX: K08.89 Other specified disorders of teeth and supporting structures (principal); F17.290 Nicotine dependence, other tobacco product, uncomplicated
CPT/HCPCS: 99213; G0463